=== PATIENT | female | born 1995 | race Caucasian/White ===

== ENCOUNTER 2017-06-05 17:29 | Emergency (ER) | payer OTHER ==
[~2017-06-05] VITALS: Ht 167.6 cm; Wt 79.5 kg
[~2017-06-05 17:29] MED LIST: NAPR-260 PO
[2017-06-05 17:32] VITALS: Ht 167.6 cm; Wt 79.5 kg
[2017-06-05] MEDS ORDERED: LORAZEPAM 1 MG TAB PO ONE (18:00)
--- NOTE | 2017-06-05 19:11 | RADRPT ---
PROCEDURE: XR Chest. CLINICAL INDICATION: Chest pain. TECHNIQUE: Single frontal view of the chest was obtained COMPARISON: None FINDINGS: The heart and mediastinum are within normal limits. The lungs are clear. There is no pleural effusion or pneumothorax. IMPRESSION: No acute disease. RPTAT: [facility] Physician Philippe Date Time Electronically viewed and signed by Physician Philippe on 06/05/2017 19:11 RS/
[2017-06-05] MEDS ORDERED: IBUP400T22 PO (19:20)
--- NOTE | 2017-06-05 19:23 | ERD ---
ER Documentation Chief Complaint Date/Time DATE: 06/05/17 TIME: 19:21 Chief Complaint heart palpations with cp, reports drinking a lot of coffee HPI This is a 21-year-old female presents to the ER with heart palpitations and chest pain after she had a lot of coffee. Patient states that she feels shaky and anxious. She denies any shortness of breath. Chest pain is nonexertional. Patient denies any fevers or chills. She denies IV drug use. Patient has not traveled anywhere. She denies any leg pain or redness or swelling. ROS 12 point review of systems was done, all negative except per HPI. Medications Home Meds Active Scripts Ibuprofen* (Motrin*) 400 Mg Tab, 400 MG PO Q6, #30 TAB Prov:TED MOREL 06/05/17 Naproxen* (Naprosyn*) 500 Mg Tablet, 500 MG PO BID Y for PAIN AND/OR INFLAMMATION, #14 TAB Prov:ENID FLORES DO 05/22/15 Allergies Allergies: Coded Allergies: No Known Allergy (Unverified , 05/22/15) PMhx/Soc Medical and Surgical Hx: pt denies Medical Hx, pt denies Surgical Hx Hx Alcohol Use: No Hx Substance Use: No Hx Tobacco Use: No Smoking Status: Never smoker Physical Exam Vitals Vital Signs Date Time Temp Pulse Resp B/P Pulse Ox O2 Delivery O2 Flow Rate FiO2 06/05/17 17:32 98.9 68 18 118/72 100 Physical Exam GENERAL: The patient is well developed and appropriate for usual state of health , in no apparent distress. HEENT: Atraumatic. Conjunctivae are pink. Pupils equal, round, and reactive to light. Extraocular muscles are grossly intact. Bilateral tympanic membranes are clear with no evidence of erythema, effusion or dulling of the light reflex. The oropharynx is clear with no erythema or exudates. NECK: C-spine is soft and supple. There is no cervical lymphadenopathy. CHEST: Clear to auscultation bilaterally. There are no rales, wheezes or rhonchi. HEART: Regular rate and rhythm. No murmurs, clicks, rubs or gallops. ABDOMEN: Soft, nontender and nondistended. Good bowel sounds. No rebound or guarding. No gross peritonitis. No gross organomegaly or masses. No Salinas sign or McBurney point tenderness. No pulsatile masses. BACK: No midline or flank tenderness. EXTREMITIES: Equal pulses bilaterally. There is no peripheral clubbing, cyanosis or edema. No focal swelling or erythema. Full range of motion. Grossly neurovascularly intact. NEURO: Alert and oriented. Cranial nerves II through XII are intact. Motor strength in all 4 extremities with 5/5 strength. Sensation grossly intact. Normal speech and gait. SKIN: There is no apparent rash or petechia. The skin is warm and dry. Results 24 hrs Current Medications Medications (Trade) Dose Ordered Sig/Sarah Route PRN Reason Start Time Stop Time Status Last Admin Dose Admin Lorazepam (Ativan) 1 mg ONCE ONCE PO 06/05/17 18:00 06/05/17 18:02 DC 06/05/17 18:25 Procedures/MDM Differential diagnosis includes but is not limited to; STEMI, dissection, pneumothorax, PE, esophageal rupture, tamponade, pneumonia, pericarditis, GERD, musculoskeletal, endocarditis, anxiety. Patient's palpitations and chest pain is likely due to caffeine use, EKG was taken and read by Dr. Ko 70bpm no ST elevation or t wave inversion. She does not have any PERC criteria . patient will be sent home with ibuprofen. She is to follow-up with her primary care doctor within 1-2 days or return to ER sooner if symptoms worsen. My medical decision making sure with the patient she understands and agrees with plan. Departure Diagnosis: Primary Impression: Palpitations Condition: Stable Patient Instructions: Palpitations Referrals: NOELLE AMARO (PCP) Additional Instructions: Call your primary care doctor TOMORROW for an appointment during the next 1-2 days.See the doctor sooner or return here if your condition worsens before your appointment time. TED MOREL Jun 05, 2017 19:23
== END 2017-06-05 19:32 | disposition home or self-care (01) ==
LOC: FTE 17:29
DX: R00.2 Palpitations (principal)
CPT/HCPCS: 71010; 93005; Z7502; Z7610